=== PATIENT | female | born 1950 | race Caucasian/White ===

== ENCOUNTER 2019-11-16 20:43 | Emergency (ER) | payer SELFPAY ==
[~2019-11-16] VITALS: Ht 180.3 cm; Wt 90.7 kg
[2019-11-16 20:44] VITALS: BP 137/71
--- NOTE | 2019-11-16 20:46 | NUR ---
PT BALJINDER RUIZS. TAKEN TO BED 4
--- NOTE | 2019-11-16 20:50 | NUR ---
Dr. Hoffmann examing patient.
--- NOTE | 2019-11-16 20:53 | NUR ---
69 Y/O FEMALE PLACED IN BED 4 C/O M/V/D. PT HAS A HX OF SPINAL STENOSIS AND COPD
--- NOTE | 2019-11-16 20:53 | NUR ---
Respiratory Therapist at bedside for respiratory intervention.
[2019-11-16] MEDS ORDERED: NACL 0.9% 1,000 ML IV ONE (20:55)
[2019-11-16] MEDS ORDERED: ALBUTEROL 0.083% 2.5 MG/3 ML NEBU INH ONE (20:55)
[2019-11-16] MEDS ORDERED: diphenhydrAMINE 50 MG/ML VIAL IVP ONE (20:55)
[2019-11-16] MEDS ORDERED: EPINEPHrine 1:1000 - 1 MG/ML AMP SUBQ ONE (20:55)
[2019-11-16] MEDS ORDERED: DEXAMETHASONE 10 MG/ML VIAL IVP ONE (20:55)
--- NOTE | 2019-11-16 20:59 | NUR ---
PT SATING AT 80%. ORDERED NONREBREATHER TO BE PLACED ON PT. PT SATING NOW 96
--- NOTE | 2019-11-16 21:00 | NUR ---
X-Ray at bedside.
--- NOTE | 2019-11-16 21:34 | NUR ---
PEAK FLOW 250 BEST EFFORT
[2019-11-16] MEDS ORDERED: LEVOFLOXACIN 500 MG/D5W PREMIX 100 ML IV ONE (22:35)
[2019-11-17] VITALS: BP 127/100
--- NOTE | 2019-11-17 | NUR ---
Patient discharged with v/s stable. Written and verbal after care instructions given and explained. Patient alert, oriented and verbalized understanding of instructions. Ambulatory with steady gait. All questions addressed prior to discharge. ID band removed. Patient advised to follow up with PMD. Rx of LEVAQUIN AND PREDNISONE WAS given. Patient educated on indication of medication including possible reaction and side effects. Opportunity to ask questions provided and answered.
== END 2019-11-17 | disposition home or self-care (01) ==
LOC: MED 20:43
DX: T36.8X5A Adverse effect of other systemic antibiotics, initial encounter (principal); J44.9 Chronic obstructive pulmonary disease, unspecified; Z88.1 Allergy status to other antibiotic agents; Y92.89 Other specified places as the place of occurrence of the external cause
CPT/HCPCS: 71045; 93005; 94640; 96365; 96372; 96375; 99291; J0171; J1100; J1200; J7613; Q0092; J7030